=== PATIENT | female | born 1960 | race Caucasian/White ===

== ENCOUNTER → 2018-05-17 14:35 | Outpatient (CLI) | payer MEDICAID | END | disposition home or self-care (01) | LOC: D.MRI 14:35 | DX: M54.16 Radiculopathy, lumbar region (principal) ==

== ENCOUNTER → 2018-09-12 08:21 | Outpatient (CLI) | payer MEDICAID | END | disposition home or self-care (01) | LOC: D.MRI 08:21 | DX: G45.9 Transient cerebral ischemic attack, unspecified (principal) ==

== ENCOUNTER → 2020-07-10 08:42 | Outpatient (CLI) | payer MEDICAID ==
[2020-07-10 09:43] LABS: ALBUMIN 3.5 g/dL (3.4-5.0); BILIRUBIN - DIRECT 0.09 mg/dL (0.00-0.30); BILIRUBIN - INDIRECT 0.24 mg/dL (0.00-1.00); BILIRUBIN - TOTAL 0.33 mg/dL (0.2-1.3)
== END | disposition home or self-care (01) ==
LOC: D.LAB 08:42 → D.US 09:30
PROVIDERS: ATTEND Internal Medicine Gastroenterology
DX: K76.0 Fatty (change of) liver, not elsewhere classified (principal)

== ENCOUNTER → 2020-07-24 11:24 | Outpatient (CLI) | payer MEDICAID | END | disposition home or self-care (01) | LOC: D.NM 07-22 08:30 | PROVIDERS: ATTEND Family Medicine | DX: K31.84 Gastroparesis (principal) ==

== ENCOUNTER → 2020-08-27 12:21 | Outpatient (CLI) | payer MEDICAID ==
[2020-08-27 13:54] LABS: AMYLASE - SERUM 42 U/L (25-115); LIPASE 76 U/L (73-393)
== END | disposition home or self-care (01) ==
LOC: D.LAB 12:21
PROVIDERS: ATTEND Internal Medicine Gastroenterology
DX: K21.9 Gastro-esophageal reflux disease without esophagitis (principal); R19.7 Diarrhea, unspecified; R10.84 Generalized abdominal pain